=== PATIENT | male | born 1995 | race Asian ===

== ENCOUNTER 2018-04-07 07:54 | Day surgery (SDC) | payer OTHER, SELFPAY ==
[2018-04-04 13:24] VITALS: BMI 31.3
--- NOTE | 2018-04-07 07:21 | PM.PREOP ---
Pre-operative Note Interval Note Pre-op Check: History & Physical Reviewed by Physician
[2018-04-07 08:27] VITALS: BP 120/72; PULSE 54; RESP 16; TEMP 36; O2SAT 97; BMI 31.3
[2018-04-07] MEDS: CEFAZOLIN 2 GM/100 ML FROZ.PIGGY IV (09:27)
--- NOTE | 2018-04-07 09:49 | SUR.OPER ---
Supine on padded OR bed, head on pillow, arms secured on padded arm boards at <90 degrees abduction, right leg secured with tape over blanket to bed, left leg draped free, safety belt at waist.
[2018-04-07] MEDS: BUPIVACAINE 0.25% (PF) 30 ML VIAL INJ (10:04)
[2018-04-07] MEDS: SODIUM CHLORIDE IRRIG SOLUTION 3,000 ML, EPINEPHrine 1 MG IRR (10:05)
--- NOTE | 2018-04-07 10:08 | SUR.OPER ---
surgeon sterilely plucked hair at incision site before incision
[2018-04-07 10:30] VITALS: BP 133/76; PULSE 75; RESP 16; TEMP 36.3; O2SAT 99
[2018-04-07 10:33] VITALS: BP 152/99; PULSE 72; RESP 13; TEMP 36.3; O2SAT 99
--- NOTE | 2018-04-07 10:37 | P.OP_ITS ---
Operative Date/Time/Diagnoses - Date of procedure: 04/07/18 Time of procedure: 09:32 Pre-op diagnosis: Left knee lateral meniscus tear Post-op diagnosis: same Procedure & Clinicians Procedure: Left knee lateral meniscus partial meniscectomy CPT 41015 Same procedure as scheduled: Yes Indications: This is a 22-year-old male who 3 months ago had a twisting injury while playing soccer. He had an effusion and has had recurrent effusions since that time. He denies any instability. He had pain and popping of the lateral aspect of the knee which is worse with these bending. Physical examination MRI was consistent with a lateral meniscus tear. Risks benefits alternatives to surgery were discussed. Risks include pain bleeding infection damage to nearby structures lack of symptom relief iatrogenic chondromalacia and need for further procedures. Written consent was obtained. Surgeon: Waldo Torres Click Yes if Unassisted: Yes Anesthesia Type: General and Local Operative Notes Findings: Examination under anesthesia: Range of motion 0-130. Stable anterior drawer. 1A Carmen's. Negative pivot shift. Stable posterior drawer. Stable dial at 30 and 90?. Stable to varus and valgus stressing at 0 and 30?. On pivot shift there is a palpable pop in the lateral knee Diagnostic arthroscopy: Patellofemoral joint showed no cartilage lesion on the patella or the trochlea. There were no free bodies. The gutters did not have any free bodies. Medial hemijoint showed the meniscus to be intact with the femoral and tibial cartilage intact. The notch had a normal PCL and ACL. The lateral hemijoint showed normal tibial and femoral cartilage. There was a parrot-beak type tear of the lateral meniscus starting at the junction of the anterior horn and the body of the meniscus extending back into the posterior horn of the meniscus. The unstable flap had flipped under the posterior horn was tucked into the popliteal hiatus. The unstable sections were removed and a large portion of the body had to be excised. The lateral root was intact. Closure Type: primary Estimated Blood Loss (mL): 5 Blood products transfused: none Tourniquet time (min): 33 Procedure in detail: Patient was met in the preoperative hold area on the day of the procedure in the operative extremity was signed. Consent was verified. He desired to proceed. He was brought to the operating room and surrendered to anesthesia. Once general anesthesia been obtained he was placed in the supine position all bony prominences well padded. He was then prepped and draped in the standard sterile fashion. A surgical time-out was held to confirm the patient's procedure identity allergies antibiotics images already growing we proceeded An Esmarch was used to exsanguinate the limb and the tourniquet was elevated to 250 mm Hg. a standard diagnostic arthroscopy utilizing an anterolateral and anterior medial portal site. the anteromedial site was created under direct visualization and localized with a spinal needle. The findings of the diagnostic arthroscopy can be found above. It was assessed that the parrot-beak type tear of the lateral meniscus was not repairable and a partial excision was planned. I utilized a mixture of various biters and a sucker shaver both from the anterolateral and anteromedial portal site to remove all unstable pieces of the meniscus. It was necessary to un flipped the piece that was under the lateral meniscus out prior to performing the partial excision. The edges were contoured to a nice smooth surface. Final images were then taken. All instruments and fluid was removed from the joint and the incisions were closed with 3 0 Monocryl buried. 10 cc of 0.25% Marcaine were placed about the incisions and Steri-Strips were applied. Sterile dressing was applied. Following the application of the dressing it was noted by the nursing staff that none of the arthroscopic images that were attempted to be taken were actually saved. I then made the decision to not the re-prep, drape, and re- entered the joint for documentation purposes as this would extend patient anesthesia time and not result in any improved outcome. He was then awakened and transferred to the recovery room. Complications: none Condition: stable Disposition: same day surgery Plan for aftercare: Weightbearing as tolerated. No impact activities for 6 weeks.
[2018-04-07 10:38] VITALS: BP 135/85; PULSE 82; RESP 14; TEMP 36.3; O2SAT 98
[2018-04-07 10:45] VITALS: BP 140/94; PULSE 61; RESP 20; TEMP 36.3; O2SAT 98
[2018-04-07] MEDS: OXYCODONE/ACETAMINOPHEN 5/325 TABLET 1 TAB PO (10:50)
[2018-04-07 10:52] VITALS: BP 145/95; PULSE 72; RESP 20; TEMP 36; O2SAT 98
== END 2018-04-07 11:20 | disposition home or self-care (01) ==
PROVIDERS: Visit Provider Orthopaedic Surgery
PROC: (CPT 29870; principal; 2018-04-07 09:15)
DX: S83.207A Unspecified tear of unspecified meniscus, current injury, left knee, initial encounter (principal)
CPT/HCPCS: 29881; J0171; J0690; J1885; J2250; J2405; J2704; J3010